=== PATIENT | female | born 1955 | race Caucasian/White ===

== ENCOUNTER 2016-05-14 14:59 | Emergency (ER) | payer MEDICARE, OTHER ==
[~2016-05-14] VITALS: Ht 180.3 cm; Wt 75.0 kg
[~2016-05-14 14:59] MED LIST: ALPR2TAB6 PO; BENZ100C8 PO; HYDR-3740 PO; IBUP800T28 PO; OMEP20CA11 PO; TRAM50TA2 PO
[2016-05-14 15:03] VITALS: BP 178/78; PULSE 61; RESP 18; O2SAT 100
--- NOTE | 2016-05-14 15:09 | ED.REPORT ---
HPI-Chest Pain 40 and Over Date of Service May 14, 2016 ED Provider: Charbel Blount MD Pt is a 60 y.o. female with a hx of HTN and asthma who presents to the ED c/o intermittent substernal chest pain radiating to her shoulders onset 3 days ago. Pt reports that she first notice the pain while she was smoking a cigarette. She says that she is unable to get comfortable but it does improve in supine position. She claims that she does not always notice the pain due to the fact that she takes 10mg Hydrocodone twice a day and 800mg Tramadol twice a day. She denies associated cough. Pt was seen in the ED on 03/06/16 for chest pain and was admitted, she had a negative stress test while she was in the hospital. She does state that she has experienced GERD in the past but she says the pain is not similar. [place] and using tobacco and ETOH, she says that the pain was present the entire time she was there. Nursing Notes Stated Complaint: CHEST PAIN, HIGH BLOOD PRESSURE Chief Complaint: Chest Pain Nursing Notes Reviewed: Yes Allergies: Coded Allergies: iodine (Verified Allergy, Severe, 01/05/09) Sulfa (Sulfonamide Antibiotics) (Verified Allergy, Intermediate, 03/06/16) codeine (Verified Allergy, Mild, Hives, 03/06/16) phenytoin (Verified Allergy, Unknown, HIVES, 01/05/09) Uncoded Allergies: CODEINE (Generic Allergy) (Allergy, Unknown, Y, 12/07/03) Hydantoins (Allergy, Unknown, 12/07/03) Iodine (Allergy, Unknown, 12/07/03) NKA (Allergy, Unknown, 12/07/03) Opiate Agonists (Narcotics) (Allergy, Unknown, 12/07/03) Phenytoin (Allergy, Unknown, HIVES, 01/12/04) Scheduled Omeprazole (Omeprazole) 20 Mg Tablet.dr 20 MG PO BID Scheduled PRN Alprazolam (Alprazolam) 2 Mg Tablet 1-2 MG PO q8 hours PRN PRN sle Benzonatate (Benzonatate) 100 Mg Capsule 100 MG PO TID PRN PRN For Cough Hydrocodone-Acetaminophen 10-325 mg (Hydrocodone-Acetaminophen 10-325 mg) 1 Each Tablet 1 TAB PO BID PRN PRN For Pain Ibuprofen (Ibuprofen) 800 Mg Tablet 800 MG PO q8 hours PRN PRN For Pain Omeprazole (Omeprazole) 20 Mg Capsule.dr 20 MG PO DAILY PRN PRN For Dyspepsia or Heartburn Tramadol (Tramadol) 50 Mg Tablet 100 MG PO BID PRN PRN For Pain General Time Seen by MD: 15:09 Chief Complaint Chest pain Hx Obtained From: Patient Arrived By: Walk-in Sudden in Onset?: Yes Onset Occurred: 3 days ago Symptom Duration: Intermittent Location: : Epigastric: Substernal Quality: Painful Radiation: : Shoulder left: Shoulder right Severity: Current: Moderate Severity: Maximum: Severe Similar Sx Previous: No Past Medical History Past Medical History Chronic pelvic pain Reports: Asthma, Hypertension Past Surgical History brain tumor elbow surgery Reports: Back/neck surgery, Hip replacement Family History father emphysema mother [place] Smoking History Current Every Day Smoker Social History Other Social History: Good social support Ambulatory Status Independent Review of Systems Respiratory: Denies: Non-productive cough Cardiovascular: Reports: Chest pain Musculoskeletal: Reports: Joint pain (Shoulders, bilaterally) Complete sys rev & neg: except as marked. Physical Exam Initial Vital Signs Vital Signs (First) Date Time Temp Pulse Resp B/P Pulse Ox O2 Delivery O2 Flow Rate FiO2 05/14/16 15:03 36.6 61 18 178/78 100 Room Air Initial VS: Reviewed Head / Eyes: Atraumatic, Normocephalic Extremities: Vascular intact, Neuro intact Skin: Warm, Dry, No cyanosis Neurologic: Alert, Oriented, Nonfocal Psychiatric: Mood/affect normal, Behavior normal, Normal thought content General/Constitutional: Awake, Alert, No acute distress, Well appearing, Well developed, Well hydrated, Well nourished, Not toxic appearing Respiratory / Chest: Atraumatic, Breath sounds NL, No respiratory distress, No rales, No rhonchi, No wheezing, No retractions, No stridor, No chest tenderness Diminished Breath Sounds: Positive: Decreased bilateral Cardiovascular: Heart rate NL, Regular rhythm, Heart sounds NL, No gallop, No murmurs, No rubs, Peripheral circulation NL Abdomen: Atraumatic, Soft, No guarding, No rebound, No distention Tenderness/Guarding/Rebound: Positive: Tender epigastric Upon examination pt's pain appears epigastric in nature vs cardiac. Interpretation & Diagnostics Lab Results Interpretation Result Diagram: 05/14/16 1512 05/14/16 1512 Test 05/14/16 15:12 White Blood Count 5.1th/mm3 (3.8-10.1) Red Blood Count 4.31mil/mm3 (3.90-5.20) Hemoglobin 14.4g/dL (12.0-15.6) Hematocrit 42.3% (35.0-46.0) Mean Corpuscular Volume 98.1fL (81-100) Mean Corpuscular Hemoglobin 33.4pg (27.0-35.0) Mean Corpuscular Hemoglobin Concent 34.0% (32.0-37.0) Red Cell Distribution Width 11.5% (12.3-15.4) Platelet Count 230bil/L (150-400) Neutrophils (%) (Auto) 53.1% (40-74) Lymphocytes (%) (Auto) 36.6% (14-46) Monocytes (%) (Auto) 8.1% (4-12) Eosinophils (%) (Auto) 1.6% (0-5) Basophils (%) (Auto) 0.4% (0-3) Sodium Level 139mEq/L (134-144) Potassium Level 4.0mEq/L (3.5-5.2) Chloride Level 98mEq/L (97-108) Carbon Dioxide Level 26mmol/L (18-29) Blood Urea Nitrogen 20mg/dL (6-24) Creatinine 0.70mg/dL (0.57-1.00) Estimat Glomerular Filtration Rate 123mL/min (>59) Glucose Level 86mg/dL (60-99) Calcium Level 9.8mg/dL (8.5-10.1) Magnesium Level 2.0mg/dL (1.6-2.6) Total Bilirubin 1.0mg/dL (0.0-1.2) Aspartate Amino Transf (AST/SGOT) 19U/L (0-50) Alanine Aminotransferase (ALT/SGPT) 11U/L (0-32) Alkaline Phosphatase 54U/L (25-150) Troponin T < 0.010ug/L (0.0-0.011) Total Protein 7.3g/dL (6.4-8.4) Albumin 4.8g/dL (3.4-5.0) Hold Sampson Top Tube Received (Received) General Lab Results Interp 1: Labs reviewed and NL ECG Interpretation Time: 15:13 Interpreted by: ED physician Normal ECG Interpretation: Normal rate (58), Normal sinus rhythm, No acute ischemic changes, Normal QRS, Normal axis, Normal intervals, No change from prior ECGs (03/07/16) X-Ray Chest Interpretation Chest Xray Interpretation: IMPRESSION: No acute cardiopulmonary disease. Dictated by: Colton Guerra M.D. on 05/14/2016 at 15:39 Approved by: Colton Guerra M.D. on 05/14/2016 at 15:40 Re-Eval/Medical Decision Med Decision/Clinical Course In summary, the patient is a 60-year-old female with a history of alcohol abuse , tobacco abuse and hypertension which is currently untreated who presents to the emergency department complaining of 3 days of intermittent epigastric pain. Of note she was admitted to the hospital complaining of chest pain in February of last year at which time she had an extensive workup including pharmacologic stress testing which was completely unremarkable. Here at this time she is complaining of pain in the epigastrium and has epigastric tenderness. She reports that she has been taking ibuprofen 800 mg twice daily for chronic pain. Upon arrival she was treated with 324 mg of aspirin and placed on continuous cardiac monitoring. She was quite hypertensive with initial systolic blood pressure 190 pills otherwise afebrile stable vital signs and no apparent distress. The patient admitted that she had recently been consuming alcohol quite heavily in addition to ibuprofen and it next morning she developed epigastric pain. Given this history and her examination as above as well as previous extensive cardiac workup I suspect that her pain is not reflective of underlying acute coronary syndrome but rather indicative of gastritis versus gastric ulcer. Therefore I administered a GI cocktail. She was reevaluated thereafter and reported significant resolution in her symptoms. CXR: Obtained, reviewed and interpreted by myself shows no evidence of acute infiltrates, effusions or pneumothorax. Cardiac and mediastinal silhouette normal. No bony or soft tissue abnormalities. EKG was obtained and interpreted by myself as documented above and demonstrated no acute ischemic changes or significant change from prior studies. Laboratory studies including CBC and CMP were unremarkable and initial troponin was negative. The patient is without any age or significant risk factors for pulmonary embolism and is without tachycardia, tachypnea or physical exam findings suggestive of DVT. The presentation is not suggestive of pulmonary embolism nor do I feel that pulmonary embolism workup is indicated. Given her extensive recent cardiac workup and negative initial EKG and troponin I do not feel that further workup for acute coronary syndrome is indicated. Chest x-ray does not demonstrate pneumonia or pneumothorax. While she has somewhat decreased air movement throughout both lung ward her presentation is not suggestive of COPD/ asthma exacerbation. Patient has been started on omeprazole and will follow closely with her primary care physician. Additionally, she has been referred to gastroenterology for possible upper endoscopy in consideration of peptic ulcer disease. Follow-up pressure precautions were reviewed in detail and she verbalized understanding and agreement with the plan. She was additionally counseled to stop smoking. Of note, the patient's blood pressure significantly improved here on recheck. She is advised to follow up with her primary care physician for recheck of her blood pressure and to consider starting antihypertensives. Patient advised to discontinue NSAIDs. Source of Hx: Old records Time of Eval: 16:33 Re-Evaluation/Progress Note: Pt rechecked. She reports still experiencing discomfort after the GI cocktail. Discussed plan for discharge, pt understands and agrees with plan. Counseled Regarding: Diagnosis Discharge & Departure Primary Impression: GERD (gastroesophageal reflux disease) Esophagitis presence: esophagitis presence not specified Qualified Code: K21.9 - Gastro-esophageal reflux disease without esophagitis Additional Impressions: Epigastric pain Alcohol abuse Tobacco abuse NSAID long-term use Ucler of stomach due to nonsteroidal antiinflammatory drug (NSAID) in therapeutic use Disposition: Home Discharge Condition All VS Reviewed: Yes Condition: Improved Patient Instructions: Gastroesophageal Reflux Disease (ED), Peptic Ulcer (ED), Syncope (ED) Additional Instructions: Your pain appears to be due to your reflux or possibly a peptic ulcer. Your cardiac work-up was reassuring. I prescribed you omeprazole to help with your symptoms. 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 Follow-up with your primary care provider regarding your high blood pressure. Please return if you are experiencing increased pain, pain with exertion, difficulty breathing, or any new or worsening symptoms. Thank you for entrusting us with your care today. Referrals: Roberto Felton MD (PCP) Scribe Attestation Portions of this note were transcribed by Robert Phillips. I, Dr. Blount personally performed the history, physical exam and medical decision-making; I reviewed and confirmed the accuracy of the information in the transcribed note. Signed by: King Schmidt, 05/14/16 and 1738. copies to: Roberto Felton MD, Beck O MD May 14, 2016 15:09 ROBERT PHILLIPS May 14, 2016 15:33
[2016-05-14 15:28] LABS: BASOPHILS % (AUTO) 0.4 % (0-3); EOSINOPHILS % (AUTO) 1.6 % (0-5); MONOCYTES % (AUTO) 8.1 % (4-12); Mean Corpuscular Hemoglobin 33.4 pg (27.0-35.0); Mean Corpuscular Volume 98.1 fL (81-100); NEUTROPHILS % (AUTO) 53.1 % (40-74); Platelet Count 230 bil/L (150-400)
[2016-05-14] MEDS ORDERED: LidocaineVisc 2%:Antacid 1:1 10 mL Syringe PO ONE (15:30)
--- NOTE | 2016-05-14 15:41 | DRSVH ---
PROCEDURE: X-RAY CHEST ONE VIEW, PORTABLE ([id number]) INDICATIONS: 60-year-old female with chest pain and hypertension for 3 days. TECHNIQUE: One view of the chest was acquired. COMPARISON: [facility], TORI, XR CHEST 2VW, 03/06/2016, 15:53. [facility], Marlyn R, CHEST 2VW, 11/05/2013, 9:01. [facility], CR, CHEST 2VW, 05/20/2013, 5:22 PM. FINDINGS: Surgical changes and devices: None. Lungs and pleura: No pleural effusions or pneumothorax. Lungs are clear. Mediastinum: Mediastinal contours appear normal. Heart size is normal. Bones and chest wall: No suspicious bony lesions. Nonacute lateral right 3rd rib fracture is again noted. Overlying soft tissues appear unremarkable. IMPRESSION: No acute cardiopulmonary disease. Dictated by: Colton Guerra M.D. on 05/14/2016 at 15:39 Approved by: Colton Guerra M.D. on 05/14/2016 at 15:40
[2016-05-14 16:04] VITALS: BP 157/82; PULSE 61; RESP 12; O2SAT 98
[2016-05-14 16:12] LABS: TROPONIN T < 0.010 ug/L (0.0-0.011)
[2016-05-14] MEDS ORDERED: OMEP20TA86 PO (16:29)
[2016-05-14] MEDS ORDERED: Pantoprazole 40 mg ER24 Tablet PO ONE (16:35)
[2016-05-14 16:48] VITALS: BP 144/74; PULSE 59; RESP 16; O2SAT 99
[2016-06-01] MEDS ORDERED: NITR100 PO (10:08)
== END 2016-05-14 16:49 | disposition home or self-care (01) ==
LOC: SED 14:59
DX: K21.9 Gastro-esophageal reflux disease without esophagitis (principal); F10.20 Alcohol dependence, uncomplicated; F17.200 Nicotine dependence, unspecified, uncomplicated; K25.9 Gastric ulcer, unspecified as acute or chronic, without hemorrhage or perforation; T39.315A Adverse effect of propionic acid derivatives, initial encounter; X58.XXXA Exposure to other specified factors, initial encounter; Y92.9 Unspecified place or not applicable; Y93.9 Activity, unspecified; Y99.9 Unspecified external cause status; I10 Essential (primary) hypertension; J45.909 Unspecified asthma, uncomplicated; R10.2 Pelvic and perineal pain; G89.29 Other chronic pain; Z79.1 Long term (current) use of non-steroidal anti-inflammatories (NSAID); Z91.041 Radiographic dye allergy status; Z88.2 Allergy status to sulfonamides; Z88.5 Allergy status to narcotic agent; Z88.8 Allergy status to other drugs, medicaments and biological substances

== ENCOUNTER 2016-05-30 09:20 | Emergency (ER) | payer MEDICARE, OTHER ==
[~2016-05-30] VITALS: Ht 177.2 cm; Wt 74.5 kg
[~2016-05-30 09:20] MED LIST changes: +OMEP20TA86 PO
[2016-05-30 09:22] VITALS: BP 135/73; PULSE 55; RESP 16; O2SAT 99
--- NOTE | 2016-05-30 09:31 | ED.REPORT ---
HPI-Abd Pain F 40 and Over Date of Service May 30, 2016 ED Provider: Cali Hernandez MD Pt is a 60 y/o female w/ a hx of pancreatitis, HTN, alcohol use, presenting to the ED c/o gradually worsening epigastric and midline lower chest pain with radiation to the back onset about 2 weeks ago. She c/o associated nausea vomiting onset 5 days ago, SOB, orthopnea. Pt denies fever, chills, diarrhea, cough, dysuria, melena, hematemesis. She went to the GI clinic today and was referred here. She has 3 strong alcoholic drinks each day, none today. She smokes 7-8 cigarettes each day. Nursing Notes Stated Complaint: PAIN IN CHEST/NAUSEA/VOMITING(ULCER) Chief Complaint: Female Abdominal Pain Nursing Notes Reviewed: Yes Allergies: Coded Allergies: iodine (Verified Allergy, Severe, 01/05/09) Sulfa (Sulfonamide Antibiotics) (Verified Allergy, Intermediate, 03/06/16) codeine (Verified Allergy, Mild, Hives, 03/06/16) phenytoin (Verified Allergy, Unknown, HIVES, 01/05/09) Uncoded Allergies: CODEINE (Generic Allergy) (Allergy, Unknown, Y, 12/07/03) Hydantoins (Allergy, Unknown, 12/07/03) Iodine (Allergy, Unknown, 12/07/03) NKA (Allergy, Unknown, 12/07/03) Opiate Agonists (Narcotics) (Allergy, Unknown, 12/07/03) Phenytoin (Allergy, Unknown, HIVES, 01/12/04) Scheduled Omeprazole (Omeprazole) 20 Mg Capsule.dr 40 MG PO DAILY Scheduled PRN Alprazolam (Alprazolam) 2 Mg Tablet 1-2 MG PO q8 hours PRN PRN sle Hydrocodone-Acetaminophen 10-325 mg (Hydrocodone-Acetaminophen 10-325 mg) 1 Each Tablet 1 TAB PO BID PRN PRN For Pain Hydrocodone-Acetaminophen 5-325 mg (Hydrocodone-Acetaminophen 5-325 mg) 1 Each Tablet 1 TABLET PO Q4H PRN PRN For Pain Ondansetron ODT (Zofran ODT) 4 Mg Tablet 4 MG PO Q4H PRN PRN For Nausea Tramadol (Tramadol) 50 Mg Tablet 100 MG PO BID PRN PRN For Pain General Time Seen by MD: 09:27 Chief Complaint Abdominal pain Hx Obtained From: Patient Arrived By: Walk-in Sudden in Onset?: No Onset Occurred: More than a week ago... (2 weeks) Symptom Duration: Since onset Location: : Epigastric Quality: Painful Radiation: : Back Severity: Current: Mild Severity: Maximum: Moderate Recent Healthcare: Recent doctor visit, Previous diagnosis Similar Sx Previous: Yes Past Medical History Past Medical History Chronic pelvic pain - pelvic floor disorder Benign meningioma - s/p surgery 1986 Hx pancreatitis Reports: Asthma, Hypertension Past Surgical History Meningioma elbow surgery Reports: Back/neck surgery, Hip replacement Family History father emphysema mother [place] Smoking History Current Every Day Smoker Social History Alcohol Use: 3-5 per day Other Social History: Good social support Ambulatory Status Independent Review of Systems Constitutional: Denies: Chills, Fever Respiratory: Reports: Shortness of breath, Denies: Non-productive cough Cardiovascular: Reports: Chest pain, Denies: Dyspnea on exertion GI: Reports: Abdominal pain, Nausea, Vomiting, Denies: Hematemesis, Melena Female: Denies: Dysuria, Urinary frequency Complete sys rev & neg: except as marked. Physical Exam Vital Signs Vital Signs (First) Date Time Temp Pulse Resp B/P Pulse Ox O2 Delivery O2 Flow Rate FiO2 05/30/16 09:22 36.1 55 16 135/73 99 Room Air Initial VS: Reviewed, Vital signs normal Head / Eyes: Atraumatic, Normocephalic, PERRL ENT: Mucous membranes moist, Conjunctiva normal, No scleral icterus Neck: Supple, Full range of motion Extremities: Vascular intact, Neuro intact, No swelling, No tenderness Skin: Warm, Dry, No cyanosis Neurologic: Alert, Oriented, Nonfocal Psychiatric: Mood/affect normal, Behavior normal, Normal thought content General/Constitutional: Awake, Alert, No acute distress, Cooperative, Not toxic appearing Appearance / Presentation: Positive: Uncomfortable Respiratory / Chest: Atraumatic, Breath sounds NL, Breath sounds = bilat, No respiratory distress, No rales, No rhonchi, No wheezing, No retractions, No stridor, No chest wall deformity, No crepitus Mild anterior chest wall tenderness Cardiovascular: Heart rate NL, Regular rhythm, Heart sounds NL, No gallop, No murmurs, No rubs, Cap refill not delayed, Peripheral circulation NL Abdomen: Atraumatic, Soft, No guarding, No rebound, No distention, No palpable mass Mild mid-epigastric tenderness Back: Full range of motion, Painless range of motion, No CVA tenderness Interpretation & Diagnostics Interpretation & Diagnostics: CT KUB w/out contrast: IMPRESSION: 1. No nephrolithiasis nor urinary tract obstruction. 2. No definite ureteral nor urinary bladder calcifications. 3. Normal appendix. Dictated by: Andrea Alcala M.D. on 05/30/2016 at 13:21 Approved by: Andrea Alcala M.D. on 05/30/2016 at 13:23 Lab Results Interpretation Result Diagram: 05/30/16 0940 05/30/16 0940 Test 05/30/16 09:40 05/30/16 10:56 White Blood Count 4.5th/mm3 (3.8-10.1) Red Blood Count 4.36mil/mm3 (3.90-5.20) Hemoglobin 14.3g/dL (12.0-15.6) Hematocrit 42.4% (35.0-46.0) Mean Corpuscular Volume 97.2fL (81-100) Mean Corpuscular Hemoglobin 32.8pg (27.0-35.0) Mean Corpuscular Hemoglobin Concent 33.7% (32.0-37.0) Red Cell Distribution Width 11.5% (12.3-15.4) Platelet Count 229bil/L (150-400) Neutrophils (%) (Auto) 61.1% (40-74) Lymphocytes (%) (Auto) 29.4% (14-46) Monocytes (%) (Auto) 7.7% (4-12) Eosinophils (%) (Auto) 1.1% (0-5) Basophils (%) (Auto) 0.7% (0-3) Sodium Level 142mEq/L (134-144) Potassium Level 4.0mEq/L (3.5-5.2) Chloride Level 104mEq/L (97-108) Carbon Dioxide Level 24mmol/L (18-29) Blood Urea Nitrogen 18mg/dL (6-24) Creatinine 0.62mg/dL (0.57-1.00) Estimat Glomerular Filtration Rate 142mL/min (>59) Glucose Level 82mg/dL (60-99) Calcium Level 9.3mg/dL (8.5-10.1) Magnesium Level 2.0mg/dL (1.6-2.6) Total Bilirubin 0.6mg/dL (0.0-1.2) Aspartate Amino Transf (AST/SGOT) 17U/L (0-50) Alanine Aminotransferase (ALT/SGPT) 9U/L (0-32) Alkaline Phosphatase 50U/L (25-150) Troponin T 0.010ug/L (0.0-0.011) Total Protein 6.6g/dL (6.4-8.4) Albumin 4.6g/dL (3.4-5.0) Lipase 36U/L (13-60) Alcohols < 10mg/dL (0-10) Urine Color Yellow (YELLOW) Urine Appearance Slightly cloudy Urine pH 7.5 (5.0-8.0) Urine Specific [place] 1.015 (1.003-1.035) Urine Protein Negativemg/dL (NEG,TRACE) Urine Glucose (UA) Negativemg/dL (NEGATIVE) Urine Ketones Negativemg/dL (NEGATIVE) Urine Occult Blood Negative (NEGATIVE) Urine Nitrite Positive (NEGATIVE) Urine Bilirubin Negative (NEGATIVE) Urine Urobilinogen Normalmg/dL (NORMAL) Urine Leukocyte Esterase Negative (NEGATIVE) Urine RBC 0-2/hpf (0-2) Urine WBC 0-5/hpf (0-5) Urine Epithelial Cells Occasional/hpf (NONE-MOD) Urine Crystals None seen (NONE SEEN) Urine Bacteria Many/hpf (NONE-FEW) Urine Hyaline Casts None/lpf (NONE) Urine Granular Casts None seen (NONE SEEN) Urine Waxy Casts None seen (NONE SEEN) Urine Red Blood Cell Casts None seen (NONE SEEN) Urine White Blood Cell Casts None seen (NONE SEEN) Urine Mucus None seen (None Seen) Urine Trichomonas None seen (NONE SEEN) Urine Yeast None (NONE SEEN) Urinalysis Comment None Urine Culture Reflexed Indicated Lab Results Interpretation: Urine dip positive leukocyte esterase and nitrite ECG Interpretation ECG Interpretation: Sinus bradycardia rate 48 Time: 11:03 Interpreted by: ED physician Normal ECG Interpretation: Normal sinus rhythm, No acute ischemic changes, Normal QRS, Normal axis, Normal intervals, Adequate tracing X-Ray Chest Interpretation Chest Xray Interpretation: IMPRESSION: Normal for age. Dictated by: Alvin Noyola M.D. on 05/30/2016 at 11:13 Approved by: Alvin Noyola M.D. on 05/30/2016 at 11:13 View: Portable, 1 view Interpretation / Wet Read by: Interpret - Radiologist Re-Eval/Medical Decision Med Decision/Clinical Course Sent from GI clinic due to abdominal pain and vomiting. Did not vomit in ED, looked comfortable. No acute findings on exam/labs/CT. Will discharge on protonix/zofran. Advised to stop alcohol and NSAIDS. F/U with GI Source of Hx: Old records Re-Evaluation/Progress #1: Time of Eval: 10:34 Re-Evaluation/Progress Note: She is questioned regarding allergies. She states Percocet has provided her no problems. Re-Evaluation/Progress #2: Time of Eval: 12:41 Re-Evaluation/Progress Note: Pt rechecked. She is questioned regarding her contrast allergy. She says that she has tolerated contrast CTs in the past with no problem. Re-Evaluation/Progress #3: Time of Eval: 12:52 Re-Evaluation/Progress Note: CT scan called and notified me that the patient was pre-treated prior to her last CT scan here to prevent allergic reaction to iodine. Non-contrast CT will be ordered. Re-Evaluation/Progress #4: Time of Eval: 15:38 Re-Evaluation/Progress Note: Pt rechecked. Informed pt of plan for treatment. Discussed imaging and lab results. Pt understands and agrees with plan for treatment. F/U instructions and RTER warnings given. All questions addressed. 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 They recommended CT abd/pelvis w/ contrast and will get her close follow-up if she is discharged. Counseled Regarding: Diagnosis, Lab results, Need for follow-up, When/why to return to ED Discharge & Departure Primary Impression: Epigastric abdominal pain Disposition: Home Discharge Condition All VS Reviewed: Yes Condition: Stable Patient Instructions: Gastritis (ED) Additional Instructions: ED evaluation included, examination, labs and CT of abdomen and pelvis. No serious acute cause for abdominal pain is identified. Further evaluation with GI consultation and endoscopy is warranted. Continue Protonix 20 mg twice a day start ondansetron as needed for nausea and vomiting and may use acetaminophen for Tylenol as needed for pain. Know that each Tylenol has acetaminophen in it, total dose of acetaminophen should not exceed 3000 mg in 1 day. Discontinuing alcohol use may improve pain. Call the GI clinic to reschedule follow-up and call primary care for an appointment soon. Return the emergency Department for fevers shaking chills uncontrolled vomiting vomiting blood, black tarry stool or passing bright red blood rectally Referrals: Roberto Felton MD (PCP) Scribe Attestation Portions of this note were transcribed by Dilshad Munoz. I, Dr. Hernandez personally performed the history, physical exam and medical decision-making; I reviewed and confirmed the accuracy of the information in the transcribed note. Signed by King Ravi, 05/30/16 - [id number] copies to: Roberto Felton MD, Donald L MD May 30, 2016 09:31 DILSHAD MUNOZ May 30, 2016 10:31
[2016-05-30] MEDS ORDERED: 0.9% Sodium Chloride 1,000 ML IV ONE (10:32)
[2016-05-30] MEDS: HYDROmorphone 0.5 mg/0.5 mL iSecure Syringe IVPUSH PRN ×4 (10:48→14:52)
[2016-05-30] MEDS: Ondansetron 2 mg/mL 2 mL Inj IVPUSH PRN ×2 (10:48→14:04)
[2016-05-30 10:54] LABS: BASOPHILS % (AUTO) 0.7 % (0-3); EOSINOPHILS % (AUTO) 1.1 % (0-5); MONOCYTES % (AUTO) 7.7 % (4-12); Mean Corpuscular Hemoglobin 32.8 pg (27.0-35.0); Mean Corpuscular Volume 97.2 fL (81-100); NEUTROPHILS % (AUTO) 61.1 % (40-74); Platelet Count 229 bil/L (150-400)
[2016-05-30 11:10] LABS: Lipase 36 U/L (13-60)
--- NOTE | 2016-05-30 11:14 | DRSVH ---
PROCEDURE: X-RAY CHEST ONE VIEW, PORTABLE ([id number]) INDICATIONS: chest pain TECHNIQUE: One view of the chest was acquired. COMPARISON: [facility], CR, XR CHEST 1VW (PORTABLE), 05/14/2016, 15:22. [facility], CR, XR CHEST 2VW, 03/06/2016, 15:53. FINDINGS: Surgical changes and devices: None. Lungs and pleura: No pleural effusions or pneumothorax. Lungs are clear. Mediastinum: Mediastinal contours appear normal. Heart size is normal. Bones and chest wall: No suspicious bony lesions. Overlying soft tissues appear unremarkable. IMPRESSION: Normal for age. Dictated by: Alvin Noyola M.D. on 05/30/2016 at 11:13 Approved by: Alvin Noyola M.D. on 05/30/2016 at 11:13
[2016-05-30 12:21] LABS: COLOR,URINE YELLOW (YELLOW)
[2016-05-30 12:22] LABS: APPEARANCE,URINE SLIGHTLY CLOUDY (CLEAR,HAZY); OCCULT BLOOD,URINE NEGATIVE (NEGATIVE); PH,URINE 7.5 (5.0-8.0); UROBILINOGEN,URINE NORMAL (NORMAL)
[2016-05-30] MEDS ORDERED: Iohexol 300 mg/mL 30 mL Inj PO ONE (12:35)
--- NOTE | 2016-05-30 13:25 | DRSVH ---
PROCEDURE: CT KUB ([id number]) INDICATIONS: epigastric pain, vomiting TECHNIQUE: Noncontrast 5 mm thick sections acquired from the diaphragms to the symphysis. 5 mm thick coronal an d sagittal reformats were then performed. For radiation dose reduction, the following was used: aut omated exposure control, adjustment of mA and/or kV according to patient size. COMPARISON: None. FINDINGS: Image quality: Partially degraded by hip arthroplasty artifact bilaterally. Lung bases: Lung bases are clear. Heart size is normal. Urinary system: Both kidneys are normal in size. No kidney stones. No hydronephrosis or perinephri c fat stranding. Both ureters appear non-dilated throughout their expected courses, but are not well seen within the pelvis secondary to hip arthroplasty artifact.. Urinary bladder is partially obscure d by hip arthroplasty artifact, but is within normal limits as visualized. Other solid organs: Liver and spleen are normal in size. Gallbladder is within normal limits. Panc reas is normal in contours. No adrenal nodules. Peritoneum and bowel: Unenhanced bowel loops demonstrate normal wall thickness and caliber. No free fluid or air. Normal appendix. Nodes and vessels: No retroperitoneal or mesenteric adenopathy by size criteria. Aorta and inferior vena cava are normal in caliber. Abdominal wall: No ventral hernias. Pelvis: No free pelvic fluid. No inguinal hernias or adenopathy. Bones: No suspicious bony lesions. Healed left posterior 11th rib fracture. Bilateral hip arthropla sty has been performed. L5-S1 fusion has been performed. No vertebral body compression fractures. IMPRESSION: 1. No nephrolithiasis nor urinary tract obstruction. 2. No definite ureteral nor urinary bladder calcifications. 3. Normal appendix. Dictated by: Andrea Alcala M.D. on 05/30/2016 at 13:21 Approved by: Andrea Alcala M.D. on 05/30/2016 at 13:23
[2016-05-30] MEDS ORDERED: ONDA4TAB9 PO (15:36)
[2016-05-30] MEDS ORDERED: HYDR-4003 PO (15:36)
[2016-05-30 15:41] VITALS: BP 152/78; PULSE 47; RESP 16; O2SAT 98
[2016-06-01] MEDS ORDERED: NITR100 PO (10:08)
== END 2016-05-30 15:36 | disposition home or self-care (01) ==
LOC: SED 09:20
DX: R10.13 Epigastric pain (principal); R07.9 Chest pain, unspecified; R11.2 Nausea with vomiting, unspecified; R06.02 Shortness of breath; J45.909 Unspecified asthma, uncomplicated; I10 Essential (primary) hypertension; F17.200 Nicotine dependence, unspecified, uncomplicated; Z88.2 Allergy status to sulfonamides; Z88.5 Allergy status to narcotic agent; Z88.8 Allergy status to other drugs, medicaments and biological substances
CPT/HCPCS: 36415; 71010; 74176; 80053; 81000; 83690; 83735; 84484; 85025; 87077; 87086; 87088; 87186; 93005; 96361; 96374; 96375; 96376; 99285; G0480; J1170; J2405; J7030

== ENCOUNTER 2016-06-02 07:51 | Day surgery (SDC) | payer MEDICARE, OTHER ==
[~2016-06-02] VITALS: Ht 175.3 cm; Wt 75.0 kg
[~2016-06-02 07:51] MED LIST changes: -BENZ100C8 PO; +HYDR-4003 PO; -IBUP800T28 PO; +Lactated Ringer's 1,000 ML IV ONE; +NITR100 PO; -OMEP20TA86 PO; +ONDA4TAB9 PO
[2016-06-02] MEDS ORDERED: Lidocaine PF 1% 30 mL Inj ONE (07:52)
[2016-06-02] MEDS ORDERED: Propofol 10,000 mCg/mL 20 mL Inj ONE (07:52)
[2016-06-02 08:19] VITALS: BP 133/80; PULSE 61; RESP 15; O2SAT 97
[2016-06-02] MEDS ORDERED: Lactated Ringer's 1,000 ML IV SCH (08:26)
--- NOTE | 2016-06-02 08:26 | PCM.HPANE ---
Patient Data Date of Service: Jun 02, 2016 Surgeon Admitting Provider: Attending Provider:Quinton Oliveros MD Primary Care Physician:Roberto Felton MD Other Provider:Heidi Dolan Anesthesia Reason for Visit Abdominal Pain With Vomiting Ht/WT & BMI Height (Feet): 5 Height (Inches): 9 Weight (Kilograms): 75 Body Mass Index 24.00 Allergies Coded Allergies: iodine (Verified Allergy, Severe, 01/05/09) Sulfa (Sulfonamide Antibiotics) (Verified Allergy, Intermediate, 03/06/16) codeine (Verified Allergy, Mild, Hives, 03/06/16) phenytoin (Verified Allergy, Unknown, HIVES, 01/05/09) Uncoded Allergies: CODEINE (Generic Allergy) (Allergy, Intermediate, Nausea, 06/02/16) Hydantoins (Allergy, Unknown, 12/07/03) Iodine (Allergy, Unknown, 12/07/03) NKA (Allergy, Unknown, 12/07/03) Opiate Agonists (Narcotics) (Allergy, Unknown, 12/07/03) Phenytoin (Allergy, Unknown, HIVES, 01/12/04) Past Anesthesia History Anesthesia History: Positive for:: Anesthesia Reactions (Pt has woken up during surgery), Denies:: Fam Malignant Hypertherm, Malignant Hyperthermia Diabetes History Hx Diabetes?: No MRSA MRSA: No Medications Active Scripts Hydrocodone-Acetaminophen 5-325 mg 1 Each Tablet1 Tablet PO Q4H PRN For Pain # 14 TABLET Prov:Cali Hernandez MD 05/30/16 Ondansetron ODT (Zofran ODT)4 Mg Tablet4 Mg PO Q4H PRN For Nausea #14 TABLET Prov:Cali Hernandez MD 05/30/16 Reported Medications Nitrofurantoin Monohyd/M-Cryst (MacroBid)100 Mg [id number] Mg PO BID PRN uti 10 Days Ref 0 06/01/16 Omeprazole 20 Mg Capsule.dr40 Mg PO DAILY 03/06/16 Alprazolam 2 Mg Tablet1-2 Mg PO q8 hours PRN sle #30 03/06/16 Hydrocodone-Acetaminophen 10-325 mg 1 Each Tablet1 Tab PO BID PRN For Pain #56 03/06/16 Tramadol 50 Mg [id number] Mg PO BID PRN For Pain #120 03/06/16 Discontinued Reported Medications Ibuprofen 800 Mg [id number] Mg PO q8 hours PRN For Pain #90 03/06/16 Discontinued Scripts Omeprazole 20 Mg Tablet.dr20 Mg PO BID 30 Days Prov:Charbel Blount MD 05/14/16 Benzonatate 100 Mg [id number] Mg PO TID PRN For Cough #14 CAPSULE Prov:Иван Amado MD 03/07/16 History History of ENT Problems?: No Denture Type: Partial- Upper Hx of Heart Problems?: No Cardiovascular History: Denies:: Congestive Heart Failure Hypertension Hx of Respiratory Problem?: Yes Respiratory History: Positive for:: Emphysema (Pre emphysema 9 years ago) Denies:: Tuberculosis Other Resp Pertinent History: smoker Hx Neurologic Problems?: No Neurological History: Denies:: CVA Hx of GI Problems?: Yes Gastrointestinal History: Positive for:: Gastroesphageal Reflux Heartburn (once a week to 2 weeks) Denies:: Gall Bladder Disease Liver Disease Hx of Problems?: Yes Genitourinary History: Positive for:: Urinary Tract Infection Female Hx: Denies:: Currently Endometriosis Pelvic Inflammatory Problems with Breasts? Hx Musculoskeletal Problems?: Yes Musculoskeletal History: Positive for:: Back Injury Joint Replacement Hx of Psycho/Social Problems?: Yes Psycho Social History: Denies:: Anxiety Bipolar Disorder Hx Depression Suicide Attempt Hx Surgeries?: Yes (Brain for tumor, tendon surgery, Both hips Replaced, ) Hx Any Other Health Problems?: Yes History Blood Transfusions: Denies:: Blood Transfusions Hx Diabetes: No Hx Alcohol Use: Yes (3-4 per day)Hx Substance Use: Yes (20 years ago, cocaine) Smoking Status: Current Every Day Smoker Have You Smoked inLast 12 mo: Yes Stop/Bang Treated for Sleep Apnea?: Yes Do You Have a CPAP Machine?: No S-Snoring: Do You Snore Loudly: No T-Tired: feel tired, fatigued: No O-Obsered: Observed not breath: No P-Blood Pressure: treated: No A- Age over 50: Yes N- Neck Large Circumference: No G- Gender Male: No DIEGO Risk Assessment: Low Risk, <3 Yes Risk Assessment Category Category 1A: Patient has history of documented sleep apnea, and HAS NOT received any narcotic, sedative or anesthesia administration during this stay. Category 1B: Patient has history of documented sleep apnea, and HAS received any narcotic , sedative or anesthesia administration during this stay Category 2: Patient has SUSPECTED Obstructive Sleep Apnea, and HAS received any narcotic , sedative or anesthesia administration during this stay. Category 3: Patient has SUSPECTED Obstructive Sleep Apnea and HAS NOT received narcotic, sedative or anesthesia administration during this stay. Category 4: Outpatient in Procedural Areas with known sleep apnea or who screen positive for High Risk via the STOP/BANG questionnaire. Exam Exam Vital Signs Vital Signs Date Time Temp Pulse Resp B/P Pulse Ox O2 Delivery O2 Flow Rate FiO2 06/02/16 08:19 61 15 133/80 97 Room Air General Appearance: Alert, Oriented X3, Cooperative HEENT/AIRWAY: MP 2, Neck Movement (Full), Mouth Opening (Partial upper) Lungs: Clear to Auscultation, Normal Air Movement Heart: Regular Rate/Rhythm, Normal S1, Normal S2 Plan Impression Patient chart reviewed, patient interviewed and anesthestic plan with risks, benefits, and alternatives discussed, and informed consent obtained. NPO Status: > 8 hours ASA Physical Status: ASA2 Mod Systemic Disease Anesthetic Plan: MAC Bene/Risks/Altern/Consents: Yes HP Complete Prior to Induction: Yes Janak Conde MD Jun 02, 2016 08:21
[2016-06-02] MEDS ORDERED: Ondansetron 2 mg/mL 2 mL Inj IVPUSH PRN (08:30)
[2016-06-02] MEDS ORDERED: MetoCLOpramide 5 mg/mL 2 mL Inj IVPUSH PRN (08:30)
[2016-06-02 08:44] VITALS: BP 152/76; RESP 16; O2SAT 99
[2016-06-02 08:54] VITALS: BP 141/79; PULSE 54; O2SAT 99
--- NOTE | 2016-06-02 09:04 | PCM.ANEP1 ---
Post Anesthesia Phase 1 PACU Phase 1 Assessment Date of Service: Jun 02, 2016 Vital Signs Vital Signs Date Time Temp Pulse Resp B/P Pulse Ox O2 Delivery O2 Flow Rate FiO2 06/02/16 08:54 54 141/79 99 Room Air 06/02/16 08:44 36.0 16 152/76 99 Room Air 06/02/16 08:19 61 15 133/80 97 Room Air Anesthetic Administered: MAC Level of Alertness: Awake, talking ONEILL's with Equal Strength: Yes Pain: No Nausea or Vomiting: No Oxygen Delivery: Room Air Lungs: Normal Air Movement Janak Conde MD Jun 02, 2016 09:04
[2016-06-02 09:05] VITALS: BP 154/73; PULSE 57; RESP 14; O2SAT 99
--- NOTE | 2016-06-02 09:05 | PCM.ANEP2 ---
Post Anesthesia Evaluation ASA/CMS Post Anesthesia Date of Service: Jun 02, 2016 VS in Patient's Normal Range?: Yes Resp Stable; Airway Patent?: Yes CV Function & Hydration Stable: Yes Mental Status Recovered?: Yes Pain control Satisfactory?: Yes N/V Control Satisfactory?: Yes Janak Conde MD Jun 02, 2016 09:05
--- NOTE | 2016-06-02 15:40 | ENDO ---
[address] [address] ENDOSCOPY PROCEDURE PATIENT: ANAISPIA BRYANT : 1955 MR#: [id number] ADMIT: 06/02/2016 JOB ID: [id number] DATE: 06/02/2016 TYPE OF OPERATION: Esophagogastroduodenoscopy with biopsy. PREOPERATIVE DIAGNOSIS(ES): Abdominal pain. POSTOPERATIVE DIAGNOSIS(ES): Mild nonerosive gastritis. ANESTHESIA: Monitored anesthesia care. COMPLICATIONS: None. BLOOD LOSS: Minimal. DESCRIPTION OF PROCEDURE: After risks and benefits were explained to the patient, informed consent was obtained. After anesthesia administered, upper endoscope was inserted into the mouth intubating the esophagus, stomach, second portion of duodenum. Mucosa carefully examined. When the procedure was done, the scope withdrawn and procedure terminated. FINDINGS: Upon inspection of the esophagus, the esophagus is normal without masses, ulcers, or lesions. Z-line located 40 cm from incisors. Upon entering the stomach, there was mild nonerosive gastritis seen throughout entire stomach. No masses, ulcers, lesions were seen. Retroflexion normal. Duodenal bulb, first and second portion normal. Biopsies of the antrum and body and distal esophagus. IMPRESSIONS: Mild nonerosive gastritis. RECOMMENDATION: 1. Await pathology results. 2. Followup in GI clinic with Cornelio Sow as an outpatient.
--- NOTE | 2016-06-05 16:21 | PATH ---
SURGICAL PATHOLOGY Attending Physician:Quinton Oliveros MD CASE STATUS: Signed Out PATIENT NAME: PIA MANZO PID: [id number] : 1955 DATE COLLECTED:06/02/2016 17:47 SPECIMEN: 1: Stomach, Antrum, Biopsy 2: Gastric, Biopsy 3: Esophagus, Biopsy CLINICAL HISTORY: 1). ANTRUM BX 2). GASTRIC BX 3). DISTAL ESOPHAGUS BX FINAL DIAGNOSIS: 1.STOMACH, ANTRUM, BIOPSY: ANTRAL MUCOSA WITH NO DIAGNOSTIC ABNORMALITY. Negative for Helicobacter organisms. Negative for intestinal metaplasia. Negative for dysplasia and malignancy. 2.STOMACH, BIOPSY: BODY-TYPE MUCOSA WITH NO DIAGNOSTIC ABNORMALITY. Negative for Helicobacter organisms. Negative for intestinal metaplasia. Negative for dysplasia and malignancy. 3.DISTAL ESOPHAGUS, BIOPSY: SQUAMOUS MUCOSA WITH NO DIAGNOSTIC ABNORMALITY. Intraepithelial eosinophils are not increased. Negative for dysplasia and malignancy. ICD10 code R10.9 GROSS DESCRIPTION: Received are three formalin-filled containers, each labeled with the patient' s name. 1. Received in formalin, labeled with the patient' s name and "1. Antrum", are two fragments of ordas, soft tissue ranging in size from 0.1 x 0.1 x 0.1 cm to 0.2 x 0.1 x 0.1 cm. All fragments are totally submitted in cassette 1A. 2. Received in formalin, labeled with the patient' s name and "2. Gastric", are two fragments of rodas, soft tissue ranging in size from 0.1 x 0.1 x 0.1 cm to 0.2 x 0.1 x 0.1 cm. All fragments are totally submitted in cassette 2A. 3. Received in formalin, labeled with the patient' s name and "3. Distal esoph", is one fragment of rodas, soft tissue measuring 0.2 x 0.1 x 0.1 cm. The fragment is totally submitted in cassette 3A. ([id number]) MICRO DESCRIPTION: See diagnosis. ICD-9 CODES: CPT CODES: 1: 50378 2: 37859 3: 85485 Electronically Signed Out Mariya Espinoza MD [facility], [place] [address] Technical component performed at [facility], [address], [place], [address]
== END 2016-06-02 23:59 | disposition home or self-care (01) ==
LOC: END 07:51
PROVIDERS: ATTEND Internal Medicine Gastroenterology
DX: K29.60 Other gastritis without bleeding (principal); K21.9 Gastro-esophageal reflux disease without esophagitis; F31.9 Bipolar disorder, unspecified; M19.90 Unspecified osteoarthritis, unspecified site; F17.210 Nicotine dependence, cigarettes, uncomplicated; Z96.643 Presence of artificial hip joint, bilateral
CPT/HCPCS: 43239; 88305; J7120